=== PATIENT | male | born 1940 | race Caucasian/White ===

== ENCOUNTER 2021-05-13 17:27 | Emergency (ER) | payer MEDICARE, SELFPAY ==
--- NOTE | ~2021-05-13 | XR_ITS ---
EXAMINATION: XR CHEST CLINICAL INFORMATION: Chest pain. COMPARISON: None. TECHNIQUE: PA view of the chest was obtained. FINDINGS: Normal appearance of the cardiomediastinal silhouette. Low lung volumes with bibasilar subsegmental atelectasis. No focal airspace opacities, pleural effusions or pneumothorax. Partially visualized left shoulder arthroplasty. No acute osseous abnormalities. XR/XR chest 1V IMPRESSION: Mild bibasilar subsegmental atelectases. Otherwise, clear lungs.
--- NOTE | 2021-05-13 17:29 | ECG_ITS ---
Test Reason : chest pain Blood Pressure : / mmHG Vent. Rate : 080 BPM Atrial Rate : 080 BPM P-R Int : 208 ms QRS Dur : 084 ms QT Int : 366 ms P-R-T Axes : 026 -47 010 degrees QTc Int : 422 ms Normal sinus rhythm Left anterior fascicular block Poor R wave progression Abnormal ECG No previous ECGs available Referred By: Generic ED Physician Electronically Signed By:LUIS RINALDI MD
[2021-05-13 17:54] LABS: Basophils Percent Auto 0.3 % (0-2); Eosinophils Absolute Auto 0.1 X10*3/uL (0.0-0.4); Eosinophils Percent Auto 1.2 % (0-4); Hematocrit 44.4 % (42.0-52.0); Hemoglobin 14.3 g/dl (14.0-18.0); Imm Gran Abs Auto 0.05 X10*3/uL (0.00-0.03); Imm Gran Pct Auto 0.5 % (0.0-0.4); Lymphocytes Absolute Auto 1.3 X10*3/uL (1.2-4.9); Lymphocytes Percent Auto 14.2 % (20-40); MANUAL DIFF FLAG NO; Mean Corpuscular HGB Conc 32.2 g/dl (31.0-36.0); Mean Corpuscular Hemoglobin 29.8 pg (27.0-33.0); Mean Corpuscular Volume 92.5 fL (80.0-98.0); Mean Platelet Volume 8.4 fL (9.4-12.4); Monocytes Absolute Auto 0.6 X10*3/uL (0.1-1.2); Monocytes Percent Auto 6.3 % (2-11); Neutrophils Absolute Auto 7.2 x10*3/uL (2.0-8.3); Neutrophils Percent Auto 77.5 % (45-73); Platelet Count 222 X10*3/uL (160-400); Red Cell Distribution Width 14.1 % (11.0-16.0); White Blood Count 9.3 X10*3/uL (4.8-10.8)
--- NOTE | 2021-05-13 17:58 | ED.CHESTPAIN ---
HPI - Chest Pain General Chief Complaint: Chest Pain Stated Complaint: chest pain Time Seen by Provider: 05/13/21 17:58 Source: patient and family Mode of arrival: ambulatory Limitations: no limitations Related Data Allergies Allergy/AdvReac Type Severity Reaction Status Date / Time Penicillins Allergy Rash Verified 05/13/21 17:58 [facility] Past Medical History Attestation statement: The following information was validated with the patient. Medical History Factor V deficiency HTN (hypertension) Stroke Social History Social History (Updated 05/13/21 @ 18:05 by Judie Saucedo DO) Patient Tobacco Use Status: Never used Tobacco Physical Exam Vital Signs: Vital Signs: Last Vital Signs Temp 98.0 F 05/13/21 17:59 Pulse 89 05/13/21 17:59 Resp 18 05/13/21 17:59 BP 129/96 H 05/13/21 17:59 Pulse Ox 96 05/13/21 17:59 Body Mass Index 32.1 Appearance: Alert. Oriented X3. No acute distress. Eyes: anisocoria ENT: Pharynx normal. Neck: Normal inspection. Neck supple. CVS: Normal heart rate and rhythm. Pulses normal. Chest: ttp along left chest wall with some reproduction of pain Respiratory: No respiratory distress. Breath sounds slightly diminished in bases Abdomen: Soft and nontender. Skin: Skin warm and dry. Normal skin color. Normal skin turgor. Extremities: pitting edema 1+ lower extremities No calf ttp Neuro: Oriented X 3. No motor deficit. No sensory deficit. Course Course Course Narrative: THIS IS A RAPID MEDICAL EXAM DEFERRED ADDITIONAL HPI, ROS, PE TO PRIMARY PROVIDER 80 male with PMH factor V, CVA with balance issues, no prior MIs, HTN, chest pain L sided no radiation with dyspnea and nausea took 4SL nitro starting at 3pm no relief with nitro, he does not take aspirin but he takes warfarin for factor V MDM - Chest Pain Lab Data Result diagrams: 05/13/21 17:43 05/13/21 17:43 Labs: Lab Results 05/13/21 05/13/21 05/13/21 Range/Units 17:43 17:43 17:43 WBC 9.3 (4.8-10.8) X10*3/uL RBC 4.80 (4.60-5.80) X10*6/uL Hgb 14.3 (14.0-18.0) g/dl Hct 44.4 (42.0-52.0) % MCV 92.5 (80.0-98.0) fL MCH 29.8 (27.0-33.0) pg MCHC 32.2 (31.0-36.0) g/dl RDW 14.1 (11.0-16.0) % Plt Count 222 (160-400) X10*3/uL MPV 8.4 L (9.4-12.4) fL Immature Gran % (Auto) 0.5 H (0.0-0.4) % Neut % (Auto) 77.5 H (45-73) % Lymph % (Auto) 14.2 L (20-40) % [place] % (Auto) 6.3 (2-11) % Eos % (Auto) 1.2 (0-4) % Baso % (Auto) 0.3 (0-2) % Lymph # (Auto) 1.3 (1.2-4.9) X10*3/uL [place] # (Auto) 0.6 (0.1-1.2) X10*3/uL Eos # (Auto) 0.1 (0.0-0.4) X10*3/uL Baso # (Auto) 0.0 (0.0-0.2) X10*3/uL Abs Immat Gran (auto) 0.05 H (0.00-0.03) X10*3/uL Absolute Neuts (auto) 7.2 (2.0-8.3) x10*3/uL Absolute Nucleated RBC 0.000 (0.0-0.012) X10*3/uL Nucleated RBC % (auto) 0.0 (0.0-0.2) /100WBC Sodium 139 (135-145) mmol/L Potassium 4.7 (3.3-5.1) mmol/L Chloride 104 (96-108) mmol/L Carbon Dioxide 28 (22-29) mmol/L Anion Gap 12 (12-20) BUN 16 (9-16) mg/dL Creatinine 0.83 (0.5-1.4) mg/dL Estim Creat Clear Calc 82.3 Estimated GFR > 60 Random Glucose 136 H (60-115) mg/dL Calcium 8.8 (8.4-10.2) mg/dL Troponin I High Sens 8.4 (<3.5-35.0) ng/L ECG Data ECG #1: Attestation: I personally reviewed and interpreted this ECG as follows: ECG interpretation date: 05/13/21 ECG interpretation time: 17:59 Ischemic changes: SD segment depression Interpretation: Rate: 80 Rhythm: NSR 1st degree AVB [place]: left Normal P waves. Normal SKIP. Normal QRS complex. ST T wave : no MICHELE, nonspecific qTC: normal prior studies: no acute ischemia The study has been interpreted contemporaneously by me. . Discharge Plan Discharge Clinical Impression: Chest pain Qualifiers: Chest pain type: intercostal pain Qualified Code(s): R07.82 - Intercostal pain
[2021-05-13 17:59] VITALS: BP 129/96; PULSE 89; RESP 18; TEMP 36.7; O2SAT 96; BMI 32.1
[2021-05-13 18:06] LABS: Anion Gap 12 (12-20); Blood Urea Nitrogen 16 mg/dL (9-16); Calcium 8.8 mg/dL (8.4-10.2); Carbon Dioxide 28 mmol/L (22-29); Chloride 104 mmol/L (96-108); Creatinine Clr Calc Pharmacy 82.3; Estimated Glomerular Filt Rate > 60; Glucose Random 136 mg/dL (60-115); Potassium 4.7 mmol/L (3.3-5.1); Sodium 139 mmol/L (135-145)
[2021-05-13 18:12] LABS: Troponin-I High Sensitivity 8.4 ng/L (<3.5-35.0)
[2021-05-13 20:03] LABS: B Type Natriuretic Peptide 40 pg/mL (<100)
[2021-05-13 22:11] VITALS: BP 175/101; PULSE 65; RESP 12; TEMP 35.8; O2SAT 94
--- NOTE | 2021-05-13 23:10 | ED_ITS ---
HPI - Chest Pain General Chief Complaint: Chest Pain Stated Complaint: chest pain Time Seen by Provider: 05/13/21 17:58 Source: patient and family Mode of arrival: ambulatory Limitations: no limitations History of Present Illness HPI narrative: 80 years old male came in for evaluation of chest pain. Patient was working out started to have squeezing pain under the left side breast, pain started around 03:00 pm o'clock, was constant for 2 hours, then pain is going to weigh around 05:00 pm o'clock, pain was localized to left-sided chest pain under the left breast, with no radiation, pain was constant for 2 ho urs then spontaneously was relieved, pain now is gone, no relieving factor, no aggravating factor. no history of similar pain in the past, no other associated symptoms, no shortness of breath, no fever, no coughing. Patient has been waiting in the emergency department walking around appear very comfortable and stable. Patient with a history of elevated blood pressure that fluctuates normally. Related Data Allergies Allergy/AdvReac Type Severity Reaction Status Date / Time Penicillins Allergy Rash Verified 05/13/21 17:58 Review of Systems Review of Systems: All other systems are reviewed and are negative Constitutional: Reports as per HPI and Reports no additional constitutional complaints Eyes: Reports as per HPI and Reports no additional eye complaints Reports system reviewed and no additional complaints, except as documented Cardiovascular: Reports as per HPI and Reports no additional cardiovascular complaints Respiratory: Reports as per HPI and Reports no additional respiratory complaints Gastrointestinal: Reports as per HPI and Reports no additional gastrointestinal complaints Genitourinary: Reports no additional female genitourinary complaints Musculoskeletal: Reports no additional musculoskeletal complaints Skin/Breast: Reports system reviewed and no additional complaints, except as docu Psychiatric: Reports no additional psychiatric complaints Endocrine: Reports no additional endocrine complaints Hematologic/Lymphatic: Reports no additional hematologic/lymphatic complaints Allergic/Immunologic: Reports no additional allergic/immunologic complaints Reports system reviewed and no additional complaints, except as documented and Reports Abnormal speech present FOR[facility]LY [facility], [facility] Past Medical History Medical History Factor V deficiency HTN (hypertension) Stroke Social History Social History Patient Tobacco Use Status: Never used Tobacco Advance Directives: No Advance Directives Information Provided: No Physical Exam Vital Signs: Vital Signs: Last Vital Signs Temp 96.6 F L 05/13/21 23:25 Pulse 69 05/13/21 23:25 Resp 12 05/13/21 22:11 BP 180/108 H 05/13/21 23:25 Pulse Ox 95 05/13/21 23:25 Body Mass Index 32.1 vital signs have been reviewed as appeared to be correct. Blood pressure Elevated. Heart rate normal. Respiration rate normal. Temperature normal. Oxygen saturation normal. Appearance: Alert. Oriented X3. No acute distress. Head: Normal external exam. Normocephalic. Atraumatic. No Mckeon signs noted. No raccoon eyes noted Eyes: PERRLA. EOMI. Conjunctiva and sclera normal. Eyelids normal. ENT: TM's Normal. Pharynx normal. Uvula midline. Moist mucous membranes. No trismus noted. No drooling noted. No muffled voice noted. Neck: Normal inspection. Neck supple. FROM. No adenopathy. Thyroid Normal. No meningeal signs. No neck mass noted. CVS: Normal heart rate and rhythm. Heart sound normal. No murmurs noted. Pulses normal throughout. Respiratory: No respiratory distress. Painless inspiration. Breath sounds normal. No wheezes/rales/rhonchi noted. Chest nontender. No accessory muscle usage noted or decreased air movement noted. Abdomen: Soft and nontender. Bowel sounds normal in all 4 quadrants. No distention noted. No organomegaly noted. No visible injury noted. Back: No CVA tenderness. Full range of motion noted. Skin: Skin warm and dry. Normal skin color. Normal skin turgor. No rashes/lesions/lacerations noted. Extremities: No lower extremity edema. Extremities exhibit normal range of motion. Extremities nontender. Neuro: Oriented X 3. Cranial nerve exam: II-XII are grossly intact No motor deficit. No sensory deficit. Reflexes normal. Course Course Course Narrative: assessment and plan. 80-year-old male came in for evaluation of left-sided chest pain, chest pain free now, with negative troponin x2 with 3 hours apart, P is unfavorable differential diagnosis patient do not have consonants pain, no shortness of breath, no tachypnea, no tachycardia, no lower extremities swelling or tenderness. patient is hypertensive, with history of hypertension, patient is taking his hypertension medication home and currently patient is asymptomatic, patient was instructed to follow up with his PCP /Cardiology. MDM - Chest Pain Lab Data Result diagrams: 05/13/21 17:43 05/13/21 17:43 Labs: Lab Results 05/13/21 05/13/21 05/13/21 Range/Units 17:43 17:43 17:43 WBC 9.3 (4.8-10.8) X10*3/uL RBC 4.80 (4.60-5.80) X10*6/uL Hgb 14.3 (14.0-18.0) g/dl Hct 44.4 (42.0-52.0) % MCV 92.5 (80.0-98.0) fL MCH 29.8 (27.0-33.0) pg MCHC 32.2 (31.0-36.0) g/dl RDW 14.1 (11.0-16.0) % Plt Count 222 (160-400) X10*3/uL MPV 8.4 L (9.4-12.4) fL Immature Gran % (Auto) 0.5 H (0.0-0.4) % Neut % (Auto) 77.5 H (45-73) % Lymph % (Auto) 14.2 L (20-40) % [place] % (Auto) 6.3 (2-11) % Eos % (Auto) 1.2 (0-4) % Baso % (Auto) 0.3 (0-2) % Lymph # (Auto) 1.3 (1.2-4.9) X10*3/uL [place] # (Auto) 0.6 (0.1-1.2) X10*3/uL Eos # (Auto) 0.1 (0.0-0.4) X10*3/uL Baso # (Auto) 0.0 (0.0-0.2) X10*3/uL Abs Immat Gran (auto) 0.05 H (0.00-0.03) X10*3/uL Absolute Neuts (auto) 7.2 (2.0-8.3) x10*3/uL Absolute Nucleated RBC 0.000 (0.0-0.012) X10*3/uL Nucleated RBC % (auto) 0.0 (0.0-0.2) /100WBC PT (9.9-13.0) SEC INR (0.9-1.1) Sodium 139 (135-145) mmol/L Potassium 4.7 (3.3-5.1) mmol/L Chloride 104 (96-108) mmol/L Carbon Dioxide 28 (22-29) mmol/L Anion Gap 12 (12-20) BUN 16 (9-16) mg/dL Creatinine 0.83 (0.5-1.4) mg/dL Estim Creat Clear Calc 82.3 Estimated GFR > 60 Random Glucose 136 H (60-115) mg/dL Calcium 8.8 (8.4-10.2) mg/dL Troponin I High Sens 8.4 (<3.5-35.0) ng/L B-Natriuretic Peptide 40 (<100) pg/mL 05/13/21 05/13/21 Range/Units 23:33 23:33 WBC (4.8-10.8) X10*3/uL RBC (4.60-5.80) X10*6/uL Hgb (14.0-18.0) g/dl Hct (42.0-52.0) % MCV (80.0-98.0) fL MCH (27.0-33.0) pg MCHC (31.0-36.0) g/dl RDW (11.0-16.0) % Plt Count (160-400) X10*3/uL MPV (9.4-12.4) fL Immature Gran % (Auto) (0.0-0.4) % Neut % (Auto) (45-73) % Lymph % (Auto) (20-40) % [place] % (Auto) (2-11) % Eos % (Auto) (0-4) % Baso % (Auto) (0-2) % Lymph # (Auto) (1.2-4.9) X10*3/uL [place] # (Auto) (0.1-1.2) X10*3/uL Eos # (Auto) (0.0-0.4) X10*3/uL Baso # (Auto) (0.0-0.2) X10*3/uL Abs Immat Gran (auto) (0.00-0.03) X10*3/uL Absolute Neuts (auto) (2.0-8.3) x10*3/uL Absolute Nucleated RBC (0.0-0.012) X10*3/uL Nucleated RBC % (auto) (0.0-0.2) /100WBC PT 31.0 H (9.9-13.0) SEC INR 2.7 H (0.9-1.1) Sodium (135-145) mmol/L Potassium (3.3-5.1) mmol/L Chloride (96-108) mmol/L Carbon Dioxide (22-29) mmol/L Anion Gap (12-20) BUN (9-16) mg/dL Creatinine (0.5-1.4) mg/dL Estim Creat Clear Calc Estimated GFR Random Glucose (60-115) mg/dL Calcium (8.4-10.2) mg/dL Troponin I High Sens 10.2 (<3.5-35.0) ng/L B-Natriuretic Peptide (<100) pg/mL Discharge Plan Discharge Clinical Impression: Chest pain, Hypertension Patient Disposition: Home, Self-Care Instructions: Noncardiac Chest Pain (ED) Referrals: Fermin Lynch MD [Primary Care Provider] - 2 days
--- NOTE | 2021-05-13 23:12 | PC.NURSE ---
IN [facility] FOR [facility]. LABS BEING DRAWN AND PT AWAITING FOR POSSIBLE D/C. WITH PT. PT ARRIVES ALERT, WALKS WITH STEADY EVEN GAIT WITH WALKER TO RESTROOM. RESPIRATIONS EASY, N/L. SKIN W/D. PT DENIES ANY CP, SOB, OR LEFT ARM PAIN. PT AWAITING FOR FURTHER ORDERS.
[2021-05-13 23:25] VITALS: BP 180/108; PULSE 69; TEMP 35.9; O2SAT 95
[2021-05-13 23:44] LABS: INTERNATIONAL NORM RATIO 2.7 (0.9-1.1)
[2021-05-13 23:57] LABS: Troponin-I High Sensitivity 10.2 ng/L (<3.5-35.0)
== END 2021-05-14 00:15 | disposition home or self-care (01) ==
PROVIDERS: Emergency Medicine; Emergency Provider Emergency Medicine; PCP Internal Medicine
DX: R07.9 Chest pain, unspecified (principal); R06.02 Shortness of breath; I10 Essential (primary) hypertension; Z79.899 Other long term (current) drug therapy
CPT/HCPCS: 36415; 71045; 80048; 83880; 84484; 85025; 85610; 93005; 99283